=== PATIENT | male | born 1960 | race Caucasian/White ===

== ENCOUNTER 2018-03-06 16:55 | Inpatient (IN) | payer OTHER ==
[2018-03-06] MEDS ORDERED: HEPARIN SODIUM,PORCINE 5,000 UNIT/ML 1 ML VIAL IV PRN (17:22)
[2018-03-06] MEDS ORDERED: SODIUM CHLORIDE 0.9% 1,000 ML IV STA (17:22)
[2018-03-06] MEDS ORDERED: SODIUM CHLORIDE 0.9% 500 ML IV STA (17:22)
[2018-03-06] MEDS ORDERED: HEPARIN SODIUM,PORCINE 5,000 UNIT/ML 1 ML VIAL IV ONE (17:22)
[2018-03-06] MEDS ORDERED: NITROGLYCERIN SL TABS 0.4 MG TAB SUBLINGUAL PRN ×2 (17:22→19:00)
--- NOTE | 2018-03-06 17:25 | ED ---
General Adult HPI - General Chief complaint: Chest Pain Stated complaint: Chest pain Time Seen by Provider: 03/06/18 17:22 Source: patient Mode of arrival: wheelchair Limitations: no limitations - History of Present Illness Initial comments: This is a 49-year-old male the ER for evaluation of chest pain. Patient has history of diabetes smoker. Patient coming in for evaluation regarding severe heaviness left-sided his chest. Patient states significant symptoms are off for a week episodic but significantly worse today with mild shortness of breath. No recent travel history no sick contacts no cough congestion or fever - Related Data Allergies Allergy/AdvReac Type Severity Reaction Status Date / Time No Known Allergies Allergy Verified 03/06/18 17:10 Review of Systems ROS Statement: Those systems with pertinent positive or pertinent negative responses have been documented in the HPI. ROS Other: All systems not noted in ROS Statement are negative. Past Medical History Past Medical History: Diabetes Mellitus History of Any Multi-Drug Resistant Organisms: None Reported Additional Past Surgical History / Comment(s): eye Past Psychological History: No Psychological Hx Reported Smoking Status: Current every day smoker Past Alcohol Use History: None Reported Past Drug Use History: None Reported General Exam Limitations: no limitations General appearance: alert, in no apparent distress, anxious Head exam: Present: atraumatic, normocephalic, normal inspection Eye exam: Present: normal appearance, PERRL, EOMI. Absent: scleral icterus, conjunctival injection, periorbital swelling ENT exam: Present: normal exam, mucous membranes moist Neck exam: Present: normal inspection. Absent: tenderness, meningismus, lymphadenopathy Respiratory exam: Present: normal lung sounds bilaterally. Absent: respiratory distress, wheezes, rales, rhonchi, stridor Cardiovascular Exam: Present: regular rate, normal rhythm, normal heart sounds. Absent: systolic murmur, diastolic murmur, rubs, gallop, clicks GI/Abdominal exam: Present: soft, normal bowel sounds. Absent: distended, tenderness, guarding, rebound, rigid Extremities exam: Present: normal inspection, full ROM, normal capillary refill. Absent: tenderness, pedal edema, joint swelling, calf tenderness Back exam: Present: normal inspection Neurological exam: Present: alert, oriented X3, CN II-XII intact Psychiatric exam: Present: normal affect, normal mood Skin exam: Present: warm, dry, intact, normal color. 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 Patient be admitted for STEMI, Navigation Officer - Lab Data Result diagrams: 03/06/18 17:25 Lab Results 03/06/18 Range/Units 17:25 WBC 11.9 H (3.8-10.6) k/uL RBC 5.30 (4.30-5.90) m/uL Hgb 15.7 (13.0-17.5) gm/dL Hct 46.2 (39.0-53.0) % MCV 87.1 (80.0-100.0) fL MCH 29.6 (25.0-35.0) pg MCHC 34.0 (31.0-37.0) g/dL RDW 13.1 (11.5-15.5) % Plt Count 356 (150-450) k/uL Neutrophils % 65 % Lymphocytes % 27 % Monocytes % 5 % Eosinophils % 1 % Basophils % 0 % Neutrophils # 7.7 (1.3-7.7) k/uL Lymphocytes # 3.3 (1.0-4.8) k/uL Monocytes # 0.5 (0-1.0) k/uL Eosinophils # 0.2 (0-0.7) k/uL Basophils # 0.1 (0-0.2) k/uL - Radiology Data Radiology results: report reviewed (Chest x-rays negative), image reviewed Critical Care Time Critical Care Time: Yes Total Critical Care Time: 31 Disposition Clinical Impression: ST elevation myocardial infarction (STEMI) Disposition: ADMITTED IP TO THIS HOSP Condition: Serious Is patient prescribed a controlled substance at d/c from ED?: No Referrals: Leti Dennis MD [Primary Care Provider] - 1-2 days
[2018-03-06] MEDS ORDERED: LABETALOL 5 MG/ML VIAL MDV IVP STA (17:30)
[2018-03-06] MEDS ORDERED: HEPARIN SOD,PORK IN 0.45% NACL 25,000 UNIT in 0.45% NACL 1 500ML.BAG IV SCH (17:30)
[2018-03-06] MEDS ORDERED: ASPIRIN 81 MG PO STA (17:40)
[2018-03-06] MEDS ORDERED: NITROGLYCERIN OINT 1 INCH/GM PACKET TOPICAL STA ×2 (17:40→17:45)
[2018-03-06] MEDS ORDERED: TICAGRELOR 90 MG TAB PO STA (17:43)
[2018-03-06 17:46] LABS: Basophils # (A) 0.1 k/uL (0-0.2); Basophils % (A) 0 %; Eosinophils # (A) 0.2 k/uL (0-0.7); Eosinophils % (A) 1 %; HCT 46.2 % (39.0-53.0); HGB 15.7 gm/dL (13.0-17.5); Lymphocytes # (A) 3.3 k/uL (1.0-4.8); Lymphocytes % (A) 27 %; MCH 29.6 pg (25.0-35.0); MCV 87.1 fL (80.0-100.0); Mean Platelet Volume 6.6; Monocytes # (A) 0.5 k/uL (0-1.0); Monocytes % (A) 5 %; Neutrophils # (A) 7.7 k/uL (1.3-7.7); Neutrophils % (A) 65 %; Platelet Count 356 k/uL (150-450); RDW 13.1 % (11.5-15.5); WBC 11.9 k/uL (3.8-10.6)
[2018-03-06] MEDS: METOPROLOL TARTRATE 5 MG/5 ML VIAL IVP SCH (17:46)
[2018-03-06] MEDS ORDERED: NITROGLYCERIN-D5W PMX 50 MG in DEXTROSE/WATER 1 250ML.BAG IV ONE (17:48)
[2018-03-06] MEDS ORDERED: fentaNYL (PF) 50 MCG/ML 2 ML AMP ONE (17:57)
[2018-03-06] MEDS ORDERED: LIDOCAINE 1% INJ 10MG/ML (20 ML MDV) ONE ×2 (17:57→18:47)
[2018-03-06] MEDS ORDERED: MIDAZOLAM 2 MG/2 ML VIAL ONE (17:57)
[2018-03-06 17:58] LABS: ALT 23 U/L (21-72); AST 17 U/L (17-59); Albumin 4.4 g/dL (3.5-5.0); Alkaline Phosphatase 87 U/L (38-126); Anion Gap 10 mmol/L; Blood Urea Nitrogen 12 mg/dL (9-20); Calcium 9.4 mg/dL (8.4-10.2); Carbon Dioxide 26 mmol/L (22-30); Chloride 102 mmol/L (98-107); Glucose 150 mg/dL (74-99); Lipase 56 U/L (23-300); Potassium 4.5 mmol/L (3.5-5.1); Sodium 138 mmol/L (137-145); Total Bilirubin 0.3 mg/dL (0.2-1.3); Total Protein 7.6 g/dL (6.3-8.2)
[2018-03-06] MEDS ORDERED: fentaNYL (PF) 50 MCG/ML 2 ML AMP IV ONE (18:08)
[2018-03-06] MEDS ORDERED: MIDAZOLAM 2 MG/2 ML VIAL IVP ONE (18:08)
[2018-03-06] MEDS ORDERED: LIDOCAINE 1% INJ 10MG/ML (20 ML MDV) SQ ONE (18:09)
[2018-03-06] MEDS ORDERED: TICAGRELOR 90 MG TAB ONE (18:10)
[2018-03-06] MEDS ORDERED: TICAGRELOR 90 MG TAB PO ONE (18:13)
[2018-03-06] MEDS ORDERED: IV FLUID CONTINUATION 350 ML IV ONE (18:14)
[2018-03-06] MEDS ORDERED: IV FLUID CONTINUATION 250 ML IV ONE (18:15)
[2018-03-06 18:21] LABS: Partial Thromboplastin Time 25.5 sec (22.0-30.0); Prothrombin Time 9.6 sec (9.0-12.0)
[2018-03-06] MEDS ORDERED: BIVALIRUDIN BOLUS 250 MG/50 ML IV ONE (18:21)
[2018-03-06] MEDS ORDERED: BIVALIRUDIN 250 MG in SODIUM CHLORIDE 0.9% 35 ML IV ONE (18:22)
[2018-03-06 18:31] LABS: Troponin I 0.03 ng/mL (0.000-0.034)
[2018-03-06] MEDS ORDERED: NITROGLYCERIN 1000MCG/10ML SYRINGE INTRACORON ONE (18:44)
[2018-03-06] MEDS ORDERED: IOPAMIDOL-370 125ML BTL INJ ONE (18:45)
[2018-03-06] MEDS ORDERED: MORPHINE SULFATE 4 MG/ML SYRINGE ONE (18:47)
[2018-03-06] MEDS ORDERED: MORPHINE SULFATE 4 MG/ML SYRINGE IVP ONE (18:49)
[2018-03-06] MEDS ORDERED: IOPAMIDOL-370 100ML BTL INJ ONE (18:49)
[2018-03-06] MEDS ORDERED: ATROPINE SULFATE 0.1 MG/ML 10ML SYRINGE IV PRN (19:00)
[2018-03-06] MEDS ORDERED: RX INFO: IV CONTRAST WAS GIVEN 1 EACH MISC MISCELLANE PRN (19:00)
[2018-03-06] MEDS ORDERED: MAG HYDROX/AL HYDROX/SIMETH 30 ML CUP PO PRN (19:00)
--- NOTE | 2018-03-06 19:08 | CC ---
CARDIAC CATHETERIZATION REPORT This patient came with extensive anterolateral myocardial infarction. The patient was taken to the [facility] for primary angioplasty. PROCEDURE: Right groin was prepped and draped in the usual manner and the skin was infiltrated with 2% Xylocaine. The right femoral artery was entered using Seldinger technique. A #6- Surinamese sheath was placed in. Selective coronary angiography was then performed in multiple projections and the left ventricular pressures were obtained. Patient tolerated procedure well. HEMODYNAMIC: Left ventricular end-diastolic pressure was 20 mmHg prior to angiography. No gradient is noted across the aortic valve. SELECTIVE CORONARY ANGIOGRAPHY: Left main coronary artery is normal and patent. LAD is a good caliber blood vessels and the mid LAD has a 99% stenosis with a haziness suggestive of thrombus. Circumflex coronary artery is average caliber blood vessel and gives rise to 2 small size obtuse marginal branch. The first obtuse marginal branch has about 30-40% stenosis. Right coronary artery is a good caliber blood vessel, is dominant in distributions. Distal RCA just before the bifurcation into the PDA and PLV branch has about 70% stenosis. FINAL IMPRESSION: This is a 99% stenosis in the mid LAD. Distal RCA has 70% stenosis. There is mild irregularity in the first obtuse marginal branch. RECOMMENDATIONS: We have proceeded with a stent to the LAD. MMODL / IJN: [id number] /
--- NOTE | 2018-03-06 19:16 | CONS ---
CONSULTATION Mr. Hathaway is a 57-year-old gentleman who is seen in the emergency room with EKG suggestive of acute myocardial infarction. This patient has a history of diabetes and possibly hypertension and he smokes about 1 pack per day. He started having chest pain about a week ago and then on and off he has been having some discomfort. This afternoon he had some discomfort. Denies any significant shortness of breath and came to the emergency room by himself. EKG suggestive of extensive anterior lateral myocardial infarction. There is no previous history of myocardial infarction and denies any prior history of angina since 1 week ago. PAST MEDICAL HISTORY: Includes a history of eye surgery. CURRENT MEDICATIONS: Include lisinopril and the details of the diabetic medicines are not available. REVIEW OF THE SYSTEM: Patient denies any history of a GI bleed or any urinary problem or denies any prior history of stroke. PHYSICAL EXAMINATION: At present reveals a 57-year-old gentleman who at present is comfortable, has not been having any significant chest discomfort. The patient's blood pressure is 180/100 mmHg. Head and ENT examination is negative. Neck is supple. There is no increase in jugular venous pressure. Both the carotid pulses are felt. There is no bruit. Chest is symmetrical. Heart: The PMI is not felt. First and second heart sounds are normal. There is no evidence of any murmur. Lungs are clinically clear to auscultation and percussion. Abdomen is soft. Liver and spleen are not enlarged. Extremities: Peripheral pulsations are 2+. EKG is suggestive of extensive anterior lateral myocardial infarction with ST-segment depression noted in the inferior leads. IMPRESSION: Acute anterior lateral myocardial infarction. Patient has received heparin, aspirin and Brilinta and nitro paste. The patient also received IV labetalol and Lopressor in the emergency room. He will be taken to the cardiac catheterization laboratory for cardiac catheterization and primary angioplasty. The risks and benefits were fully explained to the patient. No family members are available at present. MMODL / IJN: [id number] /
[2018-03-06 19:29] LABS: Glucose,Whole Blood 153 mg/dL (75-99)
--- NOTE | 2018-03-06 19:44 | PTCA ---
PERCUTANEOUSTRANS CORORONARY ANGIOGRAPHY DATE OF SERVICE: 03/06/2018 PROCEDURE: Percutaneous transluminal coronary angioplasty and stenting of a subtotally occluded mid left anterior descending coronary artery performed in the setting of an acute ST- elevation myocardial infarction. PERFORMED BY: Dr. Brigida Armijo. Moderate conscious sedation time was 26 minutes. CLINICAL INFORMATION: Mr. Stefano Hathaway is a 57-year-old gentleman with history of diabetes, smoking, hypertension, who came into the hospital with chest pain, driving himself. EKG revealed an anterior ST elevation. A STEMI alert was called and Dr. Zayra Keene evaluated the patient and performed cardiac catheterization. He noted that the LAD had a 90% stenosis and I proceeded to perform PCI in the same setting. PROCEDURE NOTE: The existing 6-Mongolian introducer in the right femoral artery was used to perform the procedure. I used a standard left Harish guide catheter to cannulate the left coronary artery. I initially attempted a BMW wire but switched over to a Whisper wire. With this I was able to cross the heavily calcified lesion. I gave 2 inflations with a 2.5, 12 mm NC Trek balloon, with modest improvement. This was a heavily calcified vessel. I then deployed a 12 mm long, 3.25 caliber Xience stent at 13 atmospheres. Patient had chest pain and pre-cordial ST elevation. Excellent angiographic result was achieved without complication. The patient received Angiomax bolus and infusion. He also received 180 mg of Brilinta. Excellent result without complication was achieved. The sheath was taken out and Perclose device used to secure hemostasis and he was sent to the room in a stable condition. Excellent angiographic result was achieved and the patient's daughter was informed about the details by Dr. Nael Keene. MMODL / IJN: [id number] /
[2018-03-06] MEDS: SODIUM CHLORIDE 0.9% 1,000 ML IV SCH (20:17)
[2018-03-06] MEDS: ATORVASTATIN 80 MG TAB PO SCH (20:59)
[2018-03-06] MEDS ORDERED: ZOLPIDEM 5 MG TAB PO PRN (21:00)
--- NOTE | 2018-03-06 21:42 | XR ---
EXAMINATION TYPE: XR chest 1V DATE OF EXAM: 03/06/2018 COMPARISON: EXAMINATION TYPE: XR chest 1V DATE OF EXAM: 03/06/2018 COMPARISON: NONE HISTORY: Chest pain TECHNIQUE: Single view FINDINGS: Heart and mediastinum are normal. Lungs are clear. Diaphragm is normal. Bony thorax is inta ct. IMPRESSION: Normal chest
[2018-03-06 22:58] VITALS: BMI 25.4
[2018-03-06 23:57] LABS: Glucose,Whole Blood 162 mg/dL (75-99)
[2018-03-07 00:30] LABS: Creatine Kinase MB 0.8 ng/mL (0.0-2.4)
[2018-03-07 00:36] LABS: Troponin I 0.068 ng/mL (0.000-0.034)
[2018-03-07] MEDS: METOPROLOL TARTRATE 5 MG/5 ML VIAL IVP SCH ×3 (02:06→02:09)
[2018-03-07 05:03] LABS: Basophils % (A) 0 %; Eosinophils # (A) 0.1 k/uL (0-0.7); Eosinophils % (A) 1 %; HCT 38.4 % (39.0-53.0); Lymphocytes # (A) 2.5 k/uL (1.0-4.8); Lymphocytes % (A) 21 %; MCH 28.8 pg (25.0-35.0); MCHC 32.9 g/dL (31.0-37.0); MCV 87.4 fL (80.0-100.0); Mean Platelet Volume 6.9; Monocytes # (A) 0.6 k/uL (0-1.0); Monocytes % (A) 5 %; Neutrophils # (A) 8.7 k/uL (1.3-7.7); Neutrophils % (A) 72 %; Platelet Count 280 k/uL (150-450); RDW 13.1 % (11.5-15.5); WBC 12.1 k/uL (3.8-10.6)
[2018-03-07 05:04] LABS: HGB 12.6 gm/dL (13.0-17.5)
[2018-03-07 05:20] LABS: Anion Gap 6 mmol/L; Blood Urea Nitrogen 13 mg/dL (9-20); Calcium 8.5 mg/dL (8.4-10.2); Carbon Dioxide 23 mmol/L (22-30); Chloride 105 mmol/L (98-107); Cholesterol 223 mg/dL (<200); Glucose 223 mg/dL (74-99); HDL Cholesterol 31 mg/dL (40-60); Sodium 134 mmol/L (137-145)
[2018-03-07 05:29] LABS: Creatine Kinase MB 1.1 ng/mL (0.0-2.4)
[2018-03-07 05:30] LABS: Triglycerides 551 mg/dL (<150)
[2018-03-07 05:32] LABS: Troponin I 0.125 ng/mL (0.000-0.034)
[2018-03-07] MEDS: ACETAMINOPHEN TAB 500 MG TAB PO PRN (06:28)
[2018-03-07 07:22] LABS: Glucose,Whole Blood 239 mg/dL (75-99)
[2018-03-07] MEDS: INSULIN ASPART 100 UNIT/ML 1 ML 10 ML VIAL SQ SCH ×4 (07:45→20:28)
[2018-03-07] MEDS: LOSARTAN 50 MG TAB PO SCH (08:31)
[2018-03-07] MEDS: ASPIRIN 81 MG PO SCH (08:31)
[2018-03-07] MEDS: TICAGRELOR 90 MG TAB PO SCH ×2 (08:32→20:23)
[2018-03-07] MEDS: SODIUM CHLORIDE 0.9% 1,000 ML IV SCH (08:32)
[2018-03-07] MEDS ORDERED: ASPIRIN 325 MG TAB PO SCH (09:00)
[2018-03-07 11:46] LABS: Glucose,Whole Blood 203 mg/dL (75-99)
--- NOTE | 2018-03-07 13:12 | P.HPIM ---
History of Present Illness 57-year-old pleasant gentleman came in with the complaints of chest pain with diaphoresis and shortness of breath found to have acute ST elevation microinfarction in the anterolateral leads patient subsequently underwent cardiac catheterization and stenting of LAD there is still stenosis of 70% in RCA. Patient did get an echocardiogram today chest pain-free today patient denied fever chills nausea vomiting. Patient does smoke extensive counseling regarding this was provided. Review of Systems REVIEW OF SYSTEMS: CONSTITUTIONAL: No fever, no malaise, no fatigue. HEENT: No recent visual problems or hearing problems. Denied any sore throat. CARDIOVASCULAR: No chest pain, orthopnea, PND, no palpitations, no syncope. PULMONARY: No shortness of breath, no cough, no hemoptysis. GASTROINTESTINAL: No diarrhea, no nausea, no vomiting, no abdominal pain. Normoactive bowel sounds. NEUROLOGICAL: No headaches, no weakness, no numbness. HEMATOLOGICAL: Denies any bleeding or petechiae. GENITOURINARY: Denies any burning micturition, frequency, or urgency. MUSCULOSKELETAL/RHEUMATOLOGICAL: Denies any joint pain, swelling, or any muscle pain. ENDOCRINE: Denies any polyuria or polydipsia. The rest of the 14-point review of systems is negative. Past Medical History Past Medical History: Diabetes Mellitus History of Any Multi-Drug Resistant Organisms: None Reported Additional Past Surgical History / Comment(s): eye Past Psychological History: No Psychological Hx Reported Smoking Status: Current every day smoker Past Alcohol Use History: None Reported Past Drug Use History: None Reported Medications and Allergies Home Medications Medication Instructions Recorded Confirmed Type Glimepiride [Amaryl] 1 mg PO BID 03/06/18 03/06/18 History Lisinopril [Zestril] 5 mg PO DAILY 03/06/18 03/06/18 History Allergies Allergy/AdvReac Type Severity Reaction Status Date / Time No Known Allergies Allergy Verified 03/06/18 17:52 Physical Exam Vitals: Vital Signs Temp Pulse Pulse Resp BP Pulse Ox 03/07/18 11:00 77 22 158/89 98 03/07/18 10:00 90 18 153/82 96 03/07/18 09:00 76 16 153/82 96 03/07/18 08:00 97.9 F 78 21 135/76 97 03/07/18 07:30 78 16 130/69 97 08/04/18 07:00 77 20 178/112 98 //18 06:30 91 24 147/85 97 03/07/18 06:00 86 17 148/81 95 18 05:30 82 21 132/81 97 18 05:00 73 20 139/78 97 03/07/18 04:30 73 18 127/72 93 L 18 04:00 98.2 F 73 21 112/67 93 L 03/07/18 03:30 74 16 125/73 95 03/07/18 03:00 74 18 130/77 94 L 03/07/18 02:00 75 16 123/71 98 03/07/18 01:30 68 12 127/74 98 03/07/18 01:00 77 18 90/59 95 03/07/18 00:30 66 12 101/61 97 03/07/18 00:00 98.2 F 73 16 103/63 98 18 23:44 70 18 119/72 96 18 23:30 78 19 119/72 97 18 23:00 84 21 116/77 97 03/06/18 22:30 76 15 124/76 97 03/06/18 22:15 79 16 96 18 22:00 78 12 152/95 96 03/06/18 21:30 75 23 98 18 21:00 73 15 134/82 97 18 20:45 76 16 03/06/18 20:30 69 70 18 98 18 20:22 97 18 20:15 72 20 18 20:00 75 16 130/80 99 0318 19:45 74 18 /18 19:30 98.5 F 76 18 124/71 98 03/18 17:55 84 18 151/100 96 03/18 17:50 82 20 162/98 96 18 17:45 86 18 170/102 98 03/18 17:40 88 18 191/105 97 0318 17:35 84 18 178/102 96 03/06/18 17:30 92 20 169/99 98 0318 17:25 120 H 20 171/102 99 03/18 17:20 132 H 20 183/110 99 03/06/18 17:15 108 H 20 176/100 96 03/06/18 17:07 98.7 F 99 18 144/92 96 Intake and Output 03/06/18 03/07/18 03/07/18 22:59 06:59 14:59 Intake Total 422.983 5121 615 Output Total 700 300 350 Balance -350.525 5358 265 Intake: IV 498 600 375 Sodium Chloride 0.9% 1, 225 600 375 000 ml @ 75 mls/hr IV . [id number] [facility] Rx#:[id number] Intake, IV Titration 0.375 Amount Nitroglycerin-D5w Pmx 50 0.375 mg In Dextrose/Water 1 250ml.bag @ 15 MCG/MIN 4. 5 mls/hr IV .Q24H ONE Rx# :[id number] Oral 937 240 Output: Urine 700 300 350 Other: Voiding Method Urinal Toilet Toilet # Voids 0 1 # Bowel Movements 1 Weight 65.2 kg 65.2 kg 65.2 kg PHYSICAL EXAMINATION: GENERAL: The patient is alert and oriented x3, not in any acute distress. Well developed, well nourished. HEENT: Pupils are round and equally reacting to light. EOMI. No scleral icterus. No conjunctival pallor. Normocephalic, atraumatic. No pharyngeal erythema. No thyromegaly. CARDIOVASCULAR: S1 and S2 present. No murmurs, rubs, or gallops. PULMONARY: Chest is clear to auscultation, no wheezing or crackles. ABDOMEN: Soft, nontender, nondistended, normoactive bowel sounds. No palpable organomegaly. MUSCULOSKELETAL: No joint swelling or deformity. EXTREMITIES: No cyanosis, clubbing, or pedal edema. NEUROLOGICAL: Gross neurological examination did not reveal any focal deficits. SKIN: No rashes. Results CBC & Chem 7: 03/07/18 04:44 03/07/18 04:44 Labs: Abnormal Lab Results - Last 24 Hours (Table) 03/06/18 03/06/18 03/06/18 Range/Units 17:25 17:25 19:26 WBC 11.9 H (3.8-10.6) k/uL Hgb (13.0-17.5) gm/dL Hct (39.0-53.0) % Neutrophils # (1.3-7.7) k/uL Sodium (137-145) mmol/L Glucose 150 H (74-99) mg/dL POC Glucose (mg/dL) 153 H (75-99) mg/dL Troponin I (0.000-0.034) ng/mL Triglycerides (<150) mg/dL Cholesterol (<200) mg/dL HDL Cholesterol (40-60) mg/dL 03/06/18 03/06/18 03/07/18 Range/Units 23:30 23:56 04:44 WBC (3.8-10.6) k/uL Hgb (13.0-17.5) gm/dL Hct (39.0-53.0) % Neutrophils # (1.3-7.7) k/uL Sodium (137-145) mmol/L Glucose (74-99) mg/dL POC Glucose (mg/dL) 162 H (75-99) mg/dL Troponin I 0.068 H* 0.125 H* (0.000-0.034) ng/mL Triglycerides (<150) mg/dL Cholesterol (<200) mg/dL HDL Cholesterol (40-60) mg/dL 03/07/18 03/07/18 03/07/18 Range/Units 04:44 04:44 07:20 WBC 12.1 H (3.8-10.6) k/uL Hgb 12.6 L D (13.0-17.5) gm/dL Hct 38.4 L (39.0-53.0) % Neutrophils # 8.7 H (1.3-7.7) k/uL Sodium 134 L (137-145) mmol/L Glucose 223 H (74-99) mg/dL POC Glucose (mg/dL) 239 H (75-99) mg/dL Troponin I (0.000-0.034) ng/mL Triglycerides 551 H (<150) mg/dL Cholesterol 223 H (<200) mg/dL HDL Cholesterol 31 L (40-60) mg/dL 03/07/18 Range/Units 11:45 WBC (3.8-10.6) k/uL Hgb (13.0-17.5) gm/dL Hct (39.0-53.0) % Neutrophils # (1.3-7.7) k/uL Sodium (137-145) mmol/L Glucose (74-99) mg/dL POC Glucose (mg/dL) 203 H (75-99) mg/dL Troponin I (0.000-0.034) ng/mL Triglycerides (<150) mg/dL Cholesterol (<200) mg/dL HDL Cholesterol (40-60) mg/dL Thrombosis Risk Factor Assmnt - Choose All That Apply Any of the Below Risk Factors Present?: Yes Each Factor Represents 1 point: Acute AK, Age 41-60 years Other Risk Factors: Yes Each Risk Factor Represents 2 Points: Central venous access Other congenital or acquired thrombophilia - If yes, enter type in comment: No Thrombosis Risk Factor Assessment Total Risk Factor Score: 4 Thrombosis Risk Factor Assessment Level: Moderate Risk Assessment and Plan Plan: -ST elevation myocardial infarction: Status post cardiac catheterization and stenting of LAD, patient is on dual antiplatelet therapy, losartan, statin and a beta frankie. -Hyponatremia hypovolemic hyponatremia patient is receiving IV normal saline -Leukocytosis secondary to myocardial infarction -Hyperlipidemia patient is on high-dose statin now. -Type 2 diabetes mellitus: Patient will be started on sliding scale insulin for now. -Nicotine abuse: Counseling was provided
[2018-03-07 14:04] LABS: Hemoglobin A1C 8.3 % (4.0-6.0)
--- NOTE | 2018-03-07 14:43 | ECHOF ---
Referral Reason:Ant STEMI PCI of LAD MEASUREMENTS -------- HEIGHT: 160.0 cm WEIGHT: 64.9 kg BP: 148/81 IVSd: 1.1 cm (0.6 - 1.1) LVIDd: 4.4 cm (3.9 - 5.3) LVPWd: 1.0 cm (0.6 - 1.1) EDV(Teich): 89 ml IVSs: 1.3 cm LVIDs: 3.1 cm LVPWs: 1.5 cm %IVS Thck: 23 % ESV(Teich): 38 ml EF(Teich): 58 % %FS: 30 % SV(Teich): 51 ml LA Diam: 3.4 cm (2.7 - 3.8) RVIDd: 2.9 cm (< 3.3) IVC: 20.03 mm LALs A4C: 4.7 cm LAAs A4C: 14.4 cm LAESV A-L A4C: 38 ml LAESV MOD A4C: 33 ml LALs A2C: 5.0 cm LAAs A2C: 13.3 cm LAESV A-L A2C: 30 ml LAESV MOD A2C: 28 ml LAESV(A-L): 35 ml LAESV Index (A-L): 20.70 ml/m Ao Diam: 3.1 cm (2.0 - 3.7) AV Cusp: 2.2 cm (1.5 - 2.6) EPSS: 0.8 cm MV E Lokesh: 0.87 m/s MV DecT: 220 ms MV Dec Davison: 4.0 m/s MV A Lokesh: 0.99 m/s MV E/A Ratio: 0.89 MV PHT: 64 ms AV Vmax: 1.46 m/s AV maxP.49 mmHg TR Vmax: 2.62 m/s TR maxP.48 mmHg RAP: 5.00 mmHg RVSP: 32.48 mmHg MV EF SLOPE: 110.41 mm/s (70 - 150) MV EXCURSION: 18.52 mm (> 18.000) FINDINGS -------- Sinus rhythm. This was a technically good study. The left ventricular size is normal. There is borderline concentric left ventricular hypertrophy. Overall left ventricular systolic function is normal with, an EF between 55 - 60 %. The right ventricle is normal in size. Normal LA size by volume 22+/-6 ml/m2. The right atrium is normal in size. The aortic valve is trileaflet and appears structurally normal. Mild mitral annular calcification present. There is trace mitral regurgitation. Mild tricuspid regurgitation present. Right ventricular systolic pressure is normal at < 35 mmHg. Trace/mild (physiologic) pulmonic regurgitation. The aortic root size is normal. Normal inferior vena cava with normal inspiratory collapse consistent with estimated right atrial pre ssure of 5 mmHg. There is no pericardial effusion. CONCLUSIONS -------- 1. Sinus rhythm. 2. This was a technically good study. 3. The left ventricular size is normal. 4. There is borderline concentric left ventricular hypertrophy. 5. Overall left ventricular systolic function is normal with, an EF between 55 - 60 %. 6. The right ventricle is normal in size. 7. Normal LA size by volume 22+/-6 ml/m2. 8. The right atrium is normal in size. 9. The aortic valve is trileaflet and appears structurally normal. 10. Mild mitral annular calcification present. 11. There is trace mitral regurgitation. 12. Mild tricuspid regurgitation present. 13. Right ventricular systolic pressure is normal at < 35 mmHg. 14. Trace/mild (physiologic) pulmonic regurgitation. 15. The aortic root size is normal. 16. Normal inferior vena cava with normal inspiratory collapse consistent with estimated right atrial pressure of 5 mmHg. 17. There is no pericardial effusion. GRADUATE STUDENT INSTRUCTOR: Patsy Goldberg RDCS
[2018-03-07 17:13] LABS: Glucose,Whole Blood 157 mg/dL (75-99)
[2018-03-07 20:22] LABS: Glucose,Whole Blood 216 mg/dL (75-99)
[2018-03-07] MEDS: ATORVASTATIN 80 MG TAB PO SCH (20:23)
--- NOTE | 2018-03-07 20:36 | PN ---
PROGRESS NOTE This patient presented with acute extensive anterior lateral wall myocardial infarction. The patient was taken to the prosthetic lab technician yesterday. The cardiac catheterization revealed 99% stenosis of the LAD. There was FRANCIS-3 flow and patient underwent stenting. He is feeling well. Denies any chest pain. Denies any shortness of breath. The patient has remained hemodynamically stable. The patient's blood pressure is 150/90 mmHg. Respirations are not labored. First and second heart sounds are normal. Lungs are clinically clear to auscultation and percussion. The patient's hemoglobin is 12.6, electrolytes are normal. Creatinine is 0.7. The maximum troponin this morning was noted at 0.0125. The patient triglycerides were 551 and the cholesterol is 223. HDL is 31. The patient's lipase was 56. EKG shows resolution of ST-segment changes and R waves are present. FINAL IMPRESSION: This patient presented with acute anterior lateral myocardial infarction. The patient is hemodynamically stable. Maximum troponin was only 0.1 suggestive of small myocardial infarction secondary to early reperfusion. We will continue the patient on the current medications. MMODL / IJN: [id number] /
[2018-03-08 04:59] LABS: HCT 42.4 % (39.0-53.0); HGB 14.2 gm/dL (13.0-17.5); MCH 29.4 pg (25.0-35.0); MCHC 33.6 g/dL (31.0-37.0); MCV 87.6 fL (80.0-100.0); Mean Platelet Volume 6.4; Platelet Count 280 k/uL (150-450); RBC 4.84 m/uL (4.30-5.90); RDW 13.1 % (11.5-15.5); WBC 12.1 k/uL (3.8-10.6)
[2018-03-08 05:22] LABS: Anion Gap 8 mmol/L; Blood Urea Nitrogen 10 mg/dL (9-20); Calcium 9.2 mg/dL (8.4-10.2); Carbon Dioxide 23 mmol/L (22-30); Chloride 107 mmol/L (98-107); Glucose 130 mg/dL (74-99); Potassium 4.3 mmol/L (3.5-5.1); Sodium 138 mmol/L (137-145)
[2018-03-08 07:24] LABS: Glucose,Whole Blood 135 mg/dL (75-99)
[2018-03-08] MEDS: TICAGRELOR 90 MG TAB PO SCH ×2 (07:59→23:13)
[2018-03-08] MEDS: ASPIRIN 81 MG PO SCH (07:59)
[2018-03-08] MEDS: LOSARTAN 50 MG TAB PO SCH (07:59)
[2018-03-08] MEDS: ACETAMINOPHEN TAB 500 MG TAB PO PRN (08:00)
[2018-03-08] MEDS: INSULIN ASPART 100 UNIT/ML 1 ML 10 ML VIAL SQ SCH ×4 (08:00→23:14)
[2018-03-08 11:52] LABS: Glucose,Whole Blood 160 mg/dL (75-99)
--- NOTE | 2018-03-08 12:24 | P.PN ---
Subjective Patient was admitted with ST elevation microinfarction stenting of LAD patient is clinically doing well chest pain-free echocardiogram showed normal ejection fraction. Constitutional: Denied any fatigue denied any fever. Cardio vascular: denied any chest pain, palpitations Gastrointestinal denied any nausea vomiting Pulmonary: Denied any shortness of breath cough Neurologic denied any new focal deficits Objective - Vital Signs Vital signs: Vital Signs Temp 98.1 F 03/08/18 08:00 Pulse 96 03/08/18 08:00 Resp 25 H 03/08/18 08:00 BP 136/79 03/08/18 08:00 Pulse Ox 97 03/08/18 08:00 Intake & Output 03/07/18 03/08/18 03/08/18 18:59 06:59 18:59 Intake Total 615 240 240 Output Total 350 450 650 Balance 265 -210 -410 Weight 65.2 kg 66.5 kg Intake: IV 375 Sodium Chloride 0.9% 1, 375 000 ml @ 75 mls/hr IV . [id number] [facility] Rx#:[id number] Oral 240 240 240 Output: Urine 350 450 650 Other: Voiding Method Toilet Toilet Toilet # Voids 1 # Bowel Movements 1 - Exam PHYSICAL EXAMINATION: GENERAL: The patient is alert and oriented x3, not in any acute distress. Well developed, well nourished. HEENT: Pupils are round and equally reacting to light. EOMI. No scleral icterus. No conjunctival pallor. Normocephalic, atraumatic. No pharyngeal erythema. No thyromegaly. CARDIOVASCULAR: S1 and S2 present. No murmurs, rubs, or gallops. PULMONARY: Chest is clear to auscultation, no wheezing or crackles. ABDOMEN: Soft, nontender, nondistended, normoactive bowel sounds. No palpable organomegaly. MUSCULOSKELETAL: No joint swelling or deformity. EXTREMITIES: No cyanosis, clubbing, or pedal edema. NEUROLOGICAL: Gross neurological examination did not reveal any focal deficits. SKIN: No rashes. - Labs CBC & Chem 7: 03/08/18 04:34 03/08/18 04:34 Labs: Abnormal Lab Results - Last 24 Hours (Table) 03/07/18 03/07/18 03/07/18 Range/Units 04:44 17:11 20:21 WBC (3.8-10.6) k/uL Glucose (74-99) mg/dL POC Glucose (mg/dL) 157 H 216 H (75-99) mg/dL Hemoglobin A1c 8.3 H (4.0-6.0) % 03/08/18 03/08/18 03/08/18 Range/Units 04:34 04:34 07:22 WBC 12.1 H (3.8-10.6) k/uL Glucose 130 H (74-99) mg/dL POC Glucose (mg/dL) 135 H (75-99) mg/dL Hemoglobin A1c (4.0-6.0) % 03/08/18 Range/Units 11:50 WBC (3.8-10.6) k/uL Glucose (74-99) mg/dL POC Glucose (mg/dL) 160 H (75-99) mg/dL Hemoglobin A1c (4.0-6.0) % Assessment and Plan Plan: -ST elevation myocardial infarction: Status post cardiac catheterization and stenting of LAD, patient is on dual antiplatelet therapy, losartan, statin and a beta frankie. Normal ejection fraction on the echocardiogram -Hyponatremia hypovolemic hyponatremia patient is receiving IV normal saline -Leukocytosis secondary to myocardial infarction -Hyperlipidemia patient is on high-dose statin now. -Type 2 diabetes mellitus: Patient will be started on sliding scale insulin for now. -Nicotine abuse: Counseling was provided
[2018-03-08 13:05] VITALS: RESP 16
[2018-03-08 17:30] LABS: Glucose,Whole Blood 211 mg/dL (75-99)
[2018-03-08 21:05] LABS: Glucose,Whole Blood 160 mg/dL (75-99)
[2018-03-08] MEDS: ATORVASTATIN 80 MG TAB PO SCH (23:13)
[2018-03-09 06:16] LABS: Mean Platelet Volume 6.5; Platelet Count 288 k/uL (150-450)
[2018-03-09 06:17] LABS: Glucose,Whole Blood 186 mg/dL (75-99)
[2018-03-09] MEDS: INSULIN ASPART 100 UNIT/ML 1 ML 10 ML VIAL SQ SCH ×2 (06:58→12:11)
[2018-03-09] MEDS: ASPIRIN 81 MG PO SCH (08:30)
[2018-03-09] MEDS: TICAGRELOR 90 MG TAB PO SCH (08:30)
[2018-03-09] MEDS: LOSARTAN 50 MG TAB PO SCH (08:30)
--- NOTE | 2018-03-09 08:55 | PN ---
PROGRESS NOTE This patient presented with extensive anterior wall myocardial infarction. Patient is doing fairly well. He remains hemodynamically stable. No arrhythmias are noted. Blood pressure is 136/79 mmHg. Heart: First and second heart sounds. No murmur was noted. Lungs are clinically clear to auscultation and percussion. Patient's vital signs remains stable. Patient to be transferred to the selective care unit and ambulated. If patient's condition remains stable, patient will be discharged home in the next 24-48 hours. MMODL / IJN: [id number] /
[2018-03-09] MEDS ORDERED: METOPROLOL TARTRATE 25 MG TAB PO SCH (09:45)
[2018-03-09 11:27] LABS: Glucose,Whole Blood 180 mg/dL (75-99)
[2018-03-09 11:47] VITALS: BP 138/95; PULSE 76; TEMP 97.4
--- NOTE | 2018-03-09 13:05 | P.PN ---
Subjective Progress Note Date: 03/09/18 This is a pleasant 57-year-old gentleman who presented to the hospital with an acute anterior wall myocardial infarction ST elevation AL, he underwent angioplasty and stenting of the LAD. Patient was seen and examined this and, denies any chest pain or difficulty in breathing. He's been up ambulating without any difficulty. Echocardiogram with Doppler study was performed which revealed an ejection fraction of 55-60%. The pressure this morning 138/90 with a heart rate in the 70s to 80s, temperature 97.4, 98% room air. Patient may be able to be discharged home today from cardiology's perspective, we'll make him a follow-up appointment to see in the office in one week Objective - Vital Signs Vital signs: Vital Signs Temp 97.4 F L 03/09/18 11:43 Pulse 76 03/09/18 11:43 Resp 16 03/09/18 11:43 BP 138/95 03/09/18 11:43 Pulse Ox 98 03/09/18 11:43 Intake & Output 03/08/18 03/09/18 03/09/18 18:59 06:59 18:59 Intake Total 720 600 Output Total 650 350 Balance 70 -350 600 Weight 63.4 kg Intake: Oral 720 600 Output: Urine 650 350 Other: Voiding Method Toilet Toilet # Voids 1 1 - Exam PHYSICAL EXAMINATION: GENERAL: This is a 57-year-old gentleman in no acute distress at the time of my examination HEENT: Head is atraumatic, normocephalic. Pupils equal, round. Sclera anicteric. Conjunctiva are clear. Mucous membranes of the mouth are moist. Neck is supple. There is no elevated jugular venous pressure.] bruit is heard. HEART EXAMINATION: Heart S1, S2 normal. No murmur or gallop heard. CHEST EXAMINATION: Lungs are clear to auscultation and precussion. No chest wall tenderness is noted on palpation or with deep breathing. ABDOMEN: Soft, nontender. Bowel sounds are heard. No organomegaly noted. EXTREMITIES: 2+ peripheral pulses with no evidence of peripheral edema and no calf tenderness noted. NEUROLOGIC patient is awake, alert and oriented ?-3. . - Labs CBC & Chem 7: 03/09/18 05:51 03/08/18 04:34 Labs: Abnormal Lab Results - Last 24 Hours (Table) 03/08/18 03/08/18 03/09/18 Range/Units 17:11 21:03 06:15 POC Glucose (mg/dL) 211 H 160 H 186 H (75-99) mg/dL 03/09/18 Range/Units 11:25 POC Glucose (mg/dL) 180 H (75-99) mg/dL Assessment and Plan Plan: Assessment and plan #1 acute anterior wall AL status post angioplasty and stenting of the LAD #2 hypertension #3 hyperlipidemia #4 nicotine dependence Plan Patient may be able to be discharged home today from cardiology's perspective. Follow-up appointment will be made with Dr. VC Keene in the office post discharge. Patient has been educated regarding his medication, diet, importance of nicotine cessation. DNP note has been reviewed, I agree with a documented findings and plan of care. Patient was seen and examined.
--- NOTE | 2018-03-10 06:31 | P.DS ---
Providers Date of admission: 03/06/18 17:24 Attending physician: Daniel Fang Consults: 03/06/18 17:22 Consult Physician Urgent Consulting Provider: Matty Fajardo Consult Reason/Comments: stemi Do you want consulting provider notified?: Yes 03/06/18 19:00 Consult Physician Routine Consulting Provider: [facility] Consult Reason/Comments: Post Interventional patient Do you want consulting provider notified?: Already Contacted Primary care physician: Jeannie Allred [facility] Course: 57-year-old pleasant gentleman came in with the complaints of chest pain with diaphoresis and shortness of breath found to have acute ST elevation myocardial infarction in the anterolateral leads patient subsequently underwent cardiac catheterization and stenting of LAD and with stenosis of 70% in RCA. Patient did get an echocardiogram:EF 55-60%. on the day of discharge , pt is chest pain- free, no dyspnea, denied fever chills nausea vomiting. Patient does smoke extensively about 1-1.5 PPD, counseling regarding this was provided and he agrees to quit, prescription for nicotine patch is provided , pt has Hb A1c is 8.3% , he was referred to endocrinology upon discharge, pt is instructed to f/u with endo clinic and he agrees. also he agrees with appointment made for pcp and cardiology and their timing. pt was cleared by cardiology for discharged, problem list and management plan was discussed with pt and he verbalized understanding and acceptance. pt is found stable and can be discharge home however he needs f/u as outpt discharge exam: GENERAL: The patient is alert and oriented x3, not in any acute distress. Well developed, well nourished. HEENT: Pupils are round and equally reacting to light. EOMI. No scleral icterus. No conjunctival pallor. Normocephalic, atraumatic. No pharyngeal erythema. No thyromegaly. CARDIOVASCULAR: S1 and S2 present. No murmurs, rubs, or gallops. PULMONARY: Chest is clear to auscultation, no wheezing or crackles. ABDOMEN: Soft, nontender, nondistended, normoactive bowel sounds. No palpable organomegaly. MUSCULOSKELETAL: No joint swelling or deformity. EXTREMITIES: No cyanosis, clubbing, or pedal edema. NEUROLOGICAL: Gross neurological examination did not reveal any focal deficits. SKIN: No rashes. time spent more than 35 min Patient Condition at Discharge: Good Plan - Discharge Summary Discharge Rx Participant: Yes New Discharge Prescriptions: New Aspirin 81 mg PO DAILY #30 chew Atorvastatin [Lipitor] 80 mg PO HS #30 tab Losartan [Cozaar] 50 mg PO DAILY #30 tab Metoprolol Tartrate [Lopressor] 25 mg PO BID #60 tab Nitroglycerin Sl Tabs [Nitrostat] 0.4 mg SUBLINGUAL Q5M PRN #25 tab PRN Reason: Chest Pain Ticagrelor [Brilinta] 90 mg PO BID #60 tab Nicotine 21Mg/24Hr Patch [Habitrol] 1 each TRANSDERM DAILY #30 patch Continue Glimepiride [Amaryl] 1 mg PO BID Discontinued Lisinopril [Zestril] 5 mg PO DAILY Discharge Medication List Glimepiride [Amaryl] 1 mg PO BID 03/06/18 [History] Aspirin 81 mg PO DAILY #30 chew 03/09/18 [Rx] Atorvastatin [Lipitor] 80 mg PO HS #30 tab 03/09/18 [Rx] Losartan [Cozaar] 50 mg PO DAILY #30 tab 03/09/18 [Rx] Metoprolol Tartrate [Lopressor] 25 mg PO BID #60 tab 03/09/18 [Rx] Nicotine 21Mg/24Hr Patch [Habitrol] 1 each TRANSDERM DAILY #30 patch 03/09/18 [ Rx] Nitroglycerin Sl Tabs [Nitrostat] 0.4 mg SUBLINGUAL Q5M PRN #25 tab 03/09/18 [Rx ] Ticagrelor [Brilinta] 90 mg PO BID #60 tab 03/09/18 [Rx] Follow up Appointment(s)/Referral(s): Leti Dennis MD [Primary Care Provider] - 03/19/18 1:10 pm () Jose Mercado MD [REFERRING] - 1 Week (Please call to schedule appointment for your DM ) Felicia Keene MD [STAFF PHYSICIAN] - 03/16/18 3:00 pm (Friday) Patient Instructions/Handouts: *Surgery [facility] - After Heart Catheterization - [employer] Instructions, Left Heart Catheterization (DC) Activity/Diet/Wound Care/Special Instructions: Follow up with senior reliability engineer regarding prior authorization for medication, Brilinta supply tech free 30 day supply of Brilinta from [facility] at time of discharge Diet: Cardiac diet Activity: is limited till you see your doctor Discharge Disposition: HOME SELF-CARE
== END 2018-03-09 16:44 | disposition home or self-care (01) | DRG 247 ==
LOC: EC 16:55 → 6ICU 17:24 → 6SEL 03-08 12:09
PROVIDERS: ADMIT Hospitalist; ATTEND Hospitalist
PROC: 4A023N7 Measurement of Cardiac Sampling and Pressure, Left Heart, Percutaneous Approach (ICD-10-PCS; principal; 2018-03-06 17:57)
PROC: B2111ZZ Fluoroscopy of Multiple Coronary Arteries using Low Osmolar Contrast (ICD-10-PCS; principal; 2018-03-06 17:57)
PROC: 027034Z Dilation of Coronary Artery, One Artery with Drug-eluting Intraluminal Device, Percutaneous Approach (ICD-10-PCS; 2018-03-06 17:57)
DX: I21.09 ST elevation (STEMI) myocardial infarction involving other coronary artery of anterior wall (principal); E87.1 Hypo-osmolality and hyponatremia; D72.829 Elevated white blood cell count, unspecified; E11.9 Type 2 diabetes mellitus without complications; E78.5 Hyperlipidemia, unspecified; F17.200 Nicotine dependence, unspecified, uncomplicated; I10 Essential (primary) hypertension; I25.10 Atherosclerotic heart disease of native coronary artery without angina pectoris; Z79.84 Long term (current) use of oral hypoglycemic drugs; Z79.899 Other long term (current) drug therapy; Z71.6 Tobacco abuse counseling; I25.84 Coronary atherosclerosis due to calcified coronary lesion
CPT/HCPCS: 36415; 71045; 80048; 80053; 80061; 82550; 82553; 83036; 83690; 83735; 84484; 85025; 85027; 85049; 85610; 85730; 93005; 93306; 93458; 96374; 96375; 96376; 99291

== ENCOUNTER 2018-08-30 00:03 | Emergency (ER) | payer OTHER ==
[2018-08-30] MEDS ORDERED: INSULIN REGULAR 100 UNIT/ML VIAL SQ STA (00:18)
[2018-08-30] MEDS ORDERED: SODIUM CHLORIDE 0.9% 2,000 ML IV ONE (00:18)
--- NOTE | 2018-08-30 01:26 | ED ---
Chest Pain HPI - General Chief Complaint: Chest Pain Stated Complaint: Chest pain Time Seen by Provider: 08/30/18 00:17 Source: patient, EMS Mode of arrival: EMS Limitations: no limitations - History of Present Illness MD Complaint: chest pain Onset/Timin -: days(s) Onset: during rest Pain Location: left chest Pain Radiation: none Severity: moderate Quality: aching Consistency: constant Improves With: nothing Worsens With: nothing Treatments Prior to Arrival: none - Related Data Previous Rx's Medication Instructions Recorded valACYclovir HCL [Valacyclovir] 1,000 mg PO Q8HR #21 tab 08/30/18 Allergies Allergy/AdvReac Type Severity Reaction Status Date / Time No Known Allergies Allergy Verified 08/30/18 00:24 Review of Systems ROS Statement: Those systems with pertinent positive or pertinent negative responses have been documented in the HPI. ROS Other: All systems not noted in ROS Statement are negative. Constitutional: Denies: fever, chills Respiratory: Reports: cough. Denies: dyspnea, wheezes, hemoptysis Cardiovascular: Reports: chest pain. Denies: palpitations, syncope Gastrointestinal: Denies: abdominal pain, nausea, vomiting, diarrhea Genitourinary: Denies: dysuria, hematuria Skin: Denies: rash Neurological: Denies: headache, weakness, numbness EKG Findings - EKG Comments: EKG Findings:: Possible old septal infarct. - EKG Results: EKG: interpreted by CHANTAL, sinus rhythm (Rate 91 bpm), normal axis, normal QRS, normal ST/T, no acute changes Past Medical History Past Medical History: Diabetes Mellitus, Hyperlipidemia, Hypertension History of Any Multi-Drug Resistant Organisms: None Reported Past Surgical History: Heart Catheterization With Stent Additional Past Surgical History / Comment(s): eye Past Psychological History: No Psychological Hx Reported Smoking Status: Current every day smoker Past Alcohol Use History: None Reported Past Drug Use History: None Reported General Exam Limitations: no limitations General appearance: alert, in no apparent distress Head exam: Present: atraumatic Eye exam: Present: normal appearance. Absent: scleral icterus, conjunctival injection ENT exam: Present: normal oropharynx Neck exam: Present: normal inspection Respiratory exam: Present: normal lung sounds bilaterally. Absent: respiratory distress, wheezes, rales, rhonchi, stridor Cardiovascular Exam: Present: regular rate, normal rhythm, normal heart sounds. Absent: systolic murmur, diastolic murmur, rubs, gallop GI/Abdominal exam: Present: soft. Absent: distended, tenderness, guarding, rebound, rigid, mass Extremities exam: Present: normal inspection, normal capillary refill. Absent: pedal edema, calf tenderness Back exam: Present: normal inspection. Absent: CVA tenderness (R), CVA tenderness (L), vertebral tenderness Neurological exam: Present: alert Skin exam: Present: warm, dry, intact, normal color, rash (Patient has clusters of raised red lesions in a bandlike pattern to the left side of the chest, suggestive of the onset of zoster.) Course Vital Signs 08/30/18 08/30/18 08/30/18 00:14 01:45 02:55 Temperature 98.4 F Pulse Rate 93 80 75 Respiratory 16 18 17 Rate Blood Pressure 151/111 134/87 136/86 O2 Sat by Pulse 93 L 96 94 L Oximetry 08/30/18 05:53 Temperature 98.1 F Pulse Rate 77 Respiratory 18 Rate Blood Pressure 119/76 O2 Sat by Pulse 95 Oximetry Chest Pain [facility] - MDM This patient is 57-year-old man presenting with left sided anterior chest pain. Physical exam does reveal out appears to be the early onset of herpes zoster. His medical workup is otherwise negative. He is started on valacyclovir and had some analgesia with good relief. Discussed further care as well as return parameters. Disposition Clinical Impression: Zoster, Hyperglycemia Disposition: HOME SELF-CARE Condition: Good Instructions (If sedation given, give patient instructions): Shingles (ED), Diabetic Hyperglycemia (ED) Prescriptions: valACYclovir HCL [Valacyclovir] 1,000 mg PO Q8HR #21 tab Is patient prescribed a controlled substance at d/c from ED?: No Referrals: None,Stated [Primary Care Provider] - 1-2 days Matty Fajardo MD [STAFF PHYSICIAN] - 1-2 days Leti Dennis MD [REFERRING] - 1-2 days
[2018-08-30 01:48] LABS: Glucose,Whole Blood 349 mg/dL (75-99)
--- NOTE | 2018-08-30 02:14 | XR ---
EXAMINATION TYPE: XR chest 1V portable DATE OF EXAM: 08/30/2018 COMPARISON: 03/06/2018 HISTORY: Chest pain TECHNIQUE: Single frontal view of the chest is obtained. FINDINGS: There is no heart failure nor confluent pneumonic infiltrate. Costophrenic angles are mary r. Heart size is normal. There are chest leads. IMPRESSION: Normal chest. No change.
[2018-08-30 02:20] LABS: Basophils % (A) 0 %; Eosinophils # (A) 0.1 k/uL (0-0.7); Eosinophils % (A) 1 %; HCT 43.6 % (39.0-53.0); HGB 14.3 gm/dL (13.0-17.5); Lymphocytes # (A) 1.9 k/uL (1.0-4.8); Lymphocytes % (A) 14 %; MCH 28.2 pg (25.0-35.0); MCHC 32.8 g/dL (31.0-37.0); MCV 85.8 fL (80.0-100.0); Mean Platelet Volume 6.3; Monocytes # (A) 0.5 k/uL (0-1.0); Monocytes % (A) 4 %; Neutrophils # (A) 10.7 k/uL (1.3-7.7); Neutrophils % (A) 79 %; Platelet Count 311 k/uL (150-450); RBC 5.08 m/uL (4.30-5.90); RDW 13.3 % (11.5-15.5); WBC 13.5 k/uL (3.8-10.6)
[2018-08-30 02:22] LABS: ALT 19 U/L (21-72); AST 12 U/L (17-59); Albumin 3.7 g/dL (3.5-5.0); Alkaline Phosphatase 113 U/L (38-126); Amylase 47 U/L (30-110); Anion Gap 7 mmol/L; Blood Urea Nitrogen 17 mg/dL (9-20); Calcium 9.3 mg/dL (8.4-10.2); Carbon Dioxide 23 mmol/L (22-30); Chloride 105 mmol/L (98-107); Glucose 354 mg/dL (74-99); Lipase 44 U/L (23-300); Magnesium 1.9 mg/dL (1.6-2.3); Potassium 4.8 mmol/L (3.5-5.1); Sodium 135 mmol/L (137-145); Total Bilirubin 0.3 mg/dL (0.2-1.3); Total Protein 6.9 g/dL (6.3-8.2)
[2018-08-30 02:24] LABS: INR 0.9 (<1.2); Partial Thromboplastin Time 25.5 sec (22.0-30.0); Prothrombin Time 9.5 sec (9.0-12.0)
[2018-08-30 02:41] LABS: Creatine Kinase 49 U/L (55-170)
[2018-08-30] MEDS ORDERED: HYDROcodone/APAP 7.5-325MG 1 EACH TAB PO ONE (02:48)
[2018-08-30] MEDS ORDERED: valACYclovir 500 MG TAB PO STA (02:48)
[2018-08-30 02:54] LABS: Creatine Kinase MB 0.5 ng/mL (0.0-2.4); Troponin I <0.012 ng/mL (0.000-0.034)
[2018-08-30 05:00] LABS: Glucose,Whole Blood 202 mg/dL (75-99)
[2018-08-30 05:55] VITALS: BP 119/76; PULSE 77; RESP 18; TEMP 98.1
== END 2018-08-30 06:01 | disposition home or self-care (01) ==
LOC: EC 00:03
DX: B02.9 Zoster without complications (principal); E11.65 Type 2 diabetes mellitus with hyperglycemia; F17.200 Nicotine dependence, unspecified, uncomplicated; Z95.5 Presence of coronary angioplasty implant and graft
CPT/HCPCS: 36415; 71045; 80053; 82150; 82550; 82553; 83690; 83735; 84484; 85025; 85610; 85730; 93005; 96360; 96361; 99285

== ENCOUNTER 2023-01-01 09:43 | Day surgery (SDC) | payer OTHER ==
[2022-12-31 12:43] VITALS: BMI 23.7
[~2023-01-01 09:43] MED LIST: ALPRAZolam 0.25 MG TAB PO PRN; ALPRAZolam 0.5 MG TAB PO PRN; ASPIRIN 325 MG TAB PO PRN; HEPARIN SODIUM,PORCINE 10,000 UNIT in SODIUM CHLORIDE 0.9% 1,000 ML IRRIGATION PRN; HEPARIN SODIUM,PORCINE 2,500 UNIT in SODIUM CHLORIDE 0.9% 250 ML IRRIGATION PRN; HYDROmorphone 0.5 MG/0.5 ML SYRINGE IVP PRN; LACTATED RINGERS 1,000 ML IV SCH; LIDOCAINE 1% (10MG/ML) FOR IV START INTRADERMA PRN; ONDANSETRON 4 MG/2 ML VIAL IVP ONE; SODIUM CHLORIDE 0.9% 1,000 ML in EMPTY BAG 1 BAG IV ONE; ZOLPIDEM 5 MG TAB PO PRN
[2023-01-01] MEDS ORDERED: SODIUM CHLORIDE 0.9% 1,000 ML IV ONE (09:56)
[2023-01-01 10:10] LABS: Glucose,Whole Blood 370 mg/dL (70-110)
[2023-01-01 10:12] VITALS: RESP 16; TEMP 98.2
[2023-01-01] MEDS ORDERED: INSULIN ASPART (NovoLOG) 100 UNIT/ML VIAL SQ ONE (10:15)
[2023-01-01 10:25] LABS: Basophils # (A) 0.1 k/uL (0-0.2); Basophils % (A) 0 %; Eosinophils # (A) 0.2 k/uL (0-0.7); Eosinophils % (A) 1 %; HCT 46.9 % (39.0-53.0); HGB 15.5 gm/dL (13.0-17.5); Lymphocytes # (A) 2.6 k/uL (1.0-4.8); Lymphocytes % (A) 14 %; MCH 28.9 pg (25.0-35.0); MCHC 32.9 g/dL (31.0-37.0); MCV 87.8 fL (80.0-100.0); Mean Platelet Volume 7.8; Monocytes # (A) 0.5 k/uL (0-1.0); Monocytes % (A) 3 %; Neutrophils # (A) 14.1 k/uL (1.3-7.7); Neutrophils % (A) 80 %; Platelet Count 341 k/uL (150-450); RBC 5.34 m/uL (4.30-5.90); RDW 13.2 % (11.5-15.5); WBC 17.7 k/uL (3.8-10.6)
[2023-01-01 10:43] LABS: Glucose,Whole Blood 322 mg/dL (70-110)
[2023-01-01] MEDS ORDERED: MIDAZOLAM 2 MG/2 ML VIAL ONE (10:44)
[2023-01-01] MEDS ORDERED: PROPOFOL 10 MG/ML 20 ML VIAL IV ONE (10:44)
[2023-01-01] MEDS ORDERED: KETAMINE 10 MG/ML 20 ML VIAL ONE (10:44)
[2023-01-01] MEDS ORDERED: fentaNYL (PF) 50 MCG/ML 2 ML AMP ONE (10:44)
[2023-01-01 10:48] LABS: African American GFR (CKD) >90 (>60 ml/min/1.73 sqM); Anion Gap 8 mmol/L; Blood Urea Nitrogen 12 mg/dL (9-20); Carbon Dioxide 26 mmol/L (22-30); Chloride 99 mmol/L (98-107); Glucose 334 mg/dL (74-99); Non-African American GFR(CKD) >90 (>60 ml/min/1.73 sqM); Potassium 4.7 mmol/L (3.5-5.1); Sodium 133 mmol/L (137-145)
[2023-01-01] MEDS ORDERED: LIDOCAINE 1% INJ 10MG/ML (30 ML VIAL-PF) SQ ONE (11:07)
[2023-01-01] MEDS ORDERED: IOPAMIDOL-250 100ML BTL INTRAARTER ONE (12:22)
--- NOTE | 2023-01-01 12:46 | IR ---
EXAMINATION TYPE: IR angio extremity RT DATE OF EXAM: 01/01/2023 COMPARISON: NONE HISTORY: Fluoroscopy time. Fluoroscopy was provided to the referring clinician.
[2023-01-01 15:16] VITALS: BP 121/74; PULSE 80
--- NOTE | 2023-01-09 08:32 | P.OP ---
Date of Procedure: 01/01/23 Preoperative Diagnosis: Right femoral occlusion Postoperative Diagnosis: Same. Procedure(s) Performed: 1: Ultrasound-guided cannulation femoral artery. 2: Catheter placement abdominal aorta. 3: Selective catheterization right common femoral artery (contralateral side). 4: Right femoral angiogram. 5: Inability to complete proposed procedure of right femoral atherectomy. Implants: None. Anesthesia: MAC Surgeon: Aayush Castorena Estimated Blood Loss (ml): 20 Pathology: none sent Condition: stable Disposition: no change Indications for Procedure: Patient is a 62-year-old male who presented with a several limiting right calf claudication. Physical examination a strata femoral pulse to be intact on the right warm popliteal, DP and PT pulses were found to be absent. Arterial Doppler study was performed which demonstrated significant decrease in ankle brachial index as well as findings consistent with femoral occlusion. Discussion was held with the patient in reference to options of attempted atherectomy versus bypass eared both procedures as well as inherent risk and benefits of both procedures were reviewed. Was felt the patient was a reasonable candidate for atherectomy and the patient decided to proceed with atherectomy attempt. Operative Findings: Inability to cross obstructive lesion right superficial femoral artery. Description of Procedure: Patient is brought to special procedure suite. Both groins were sterilely prepped and draped in usual manner. Patient received attended anesthesia delivered by the department of anesthesiology. Utilizing ultrasound the left common femoral artery was identified and 1% Xylocaine was utilized for local anesthesia tissues overlying the left common femoral artery. Utilizing ultrasound and through the anesthetized area a multipurpose needle was utilized cannulate the artery. Once cannulated Softip guidewire is advanced. The needle was withdrawn and a 6-Prydeinig sheath was placed. Guidewire and catheter combination were utilized to to selectively cannulate the origin of the right common iliac artery. Catheter was exchanged for a angled glide catheter and catheter and guidewire combination were advanced to the common femoral level. Guidewire was advanced into the superficial femoral artery proximally as was the catheter. Femoral angiogram was performed. Multiple guidewire and catheter combinations were utilized to attempt to advance guidewire through the occlusion however this could not be achieved and was felt no further attempts would be fruitful and the procedure was terminated. Catheter and guidewire were withdrawn and the sheath was withdrawn with the puncture wound being closed with Angio-Seal device. Patient tolerated the procedure well and was taken to the outpatient recovery area satisfactory and stable condition.
== END 2023-01-01 16:40 | disposition home or self-care (01) ==
LOC: CATHCVL 09:43
PROVIDERS: ATTEND Surgery
DX: I70.201 Unspecified atherosclerosis of native arteries of extremities, right leg (principal); I25.2 Old myocardial infarction; I25.10 Atherosclerotic heart disease of native coronary artery without angina pectoris; I10 Essential (primary) hypertension; E78.5 Hyperlipidemia, unspecified; F10.20 Alcohol dependence, uncomplicated; F32.A Depression, unspecified; F17.210 Nicotine dependence, cigarettes, uncomplicated; E11.52 Type 2 diabetes mellitus with diabetic peripheral angiopathy with gangrene; Z79.02 Long term (current) use of antithrombotics/antiplatelets; Z79.82 Long term (current) use of aspirin; Z79.84 Long term (current) use of oral hypoglycemic drugs; Z79.899 Other long term (current) drug therapy
CPT/HCPCS: 36247; 76937; 75710; 80048; 85025; C1894 ×3; C1769 ×4; C1887; C1760; J2250; J2001; J3010; J2704; Q9966

== ENCOUNTER 2023-03-14 05:56 | Day surgery (SDC) | payer OTHER ==
[2023-03-10 10:26] VITALS: BMI 21.2
[~2023-03-14 05:56] MED LIST changes: -ASPIRIN 325 MG TAB PO PRN; +ASPIRIN 325 MG TAB PO STA; +ATORVASTATIN 80 MG TAB PO STA; +HEPARIN SODIUM,PORCINE (1 ML) 2,500 UNIT in SODIUM CHLORIDE 0.9% 250 ML IRRIGATION PRN; -HEPARIN SODIUM,PORCINE 2,500 UNIT in SODIUM CHLORIDE 0.9% 250 ML IRRIGATION PRN; -HYDROmorphone 0.5 MG/0.5 ML SYRINGE IVP PRN; -LACTATED RINGERS 1,000 ML IV SCH; -LIDOCAINE 1% (10MG/ML) FOR IV START INTRADERMA PRN; +NITROGLYCERIN SL TABS 0.4 MG TAB SUBLINGUAL PRN; -ONDANSETRON 4 MG/2 ML VIAL IVP ONE; -SODIUM CHLORIDE 0.9% 1,000 ML in EMPTY BAG 1 BAG IV ONE; +SODIUM CHLORIDE 0.9% 1,000 ML in EMPTY BAG 1 BAG IV SCH; -ZOLPIDEM 5 MG TAB PO PRN
[2023-03-14] MEDS ORDERED: INSULIN ASPART (NovoLOG) 100 UNIT/ML VIAL SQ ONE (06:37)
[2023-03-14 06:45] LABS: Glucose,Whole Blood 391 mg/dL (70-110)
[2023-03-14 07:11] VITALS: TEMP 98.2
[2023-03-14 07:29] LABS: Basophils % (A) 0 %; Eosinophils # (A) 0.2 k/uL (0-0.7); Eosinophils % (A) 2 %; HCT 45.1 % (39.0-53.0); HGB 15.4 gm/dL (13.0-17.5); Lymphocytes # (A) 2.5 k/uL (1.0-4.8); Lymphocytes % (A) 22 %; MCH 30.2 pg (25.0-35.0); MCV 88.6 fL (80.0-100.0); Mean Platelet Volume 7.6; Monocytes # (A) 0.6 k/uL (0-1.0); Monocytes % (A) 6 %; Neutrophils # (A) 7.9 k/uL (1.3-7.7); Neutrophils % (A) 69 %; Platelet Count 301 k/uL (150-450); RBC 5.09 m/uL (4.30-5.90); RDW 13.2 % (11.5-15.5); WBC 11.5 k/uL (3.8-10.6)
[2023-03-14 07:34] LABS: African American GFR (CKD) >90 (>60 ml/min/1.73 sqM); Anion Gap 8 mmol/L; Blood Urea Nitrogen 16 mg/dL (9-20); Calcium 9.1 mg/dL (8.4-10.2); Carbon Dioxide 27 mmol/L (22-30); Chloride 95 mmol/L (98-107); Glucose 394 mg/dL (74-99); Non-African American GFR(CKD) >90 (>60 ml/min/1.73 sqM); Potassium 4.7 mmol/L (3.5-5.1); Sodium 130 mmol/L (137-145)
[2023-03-14] MEDS ORDERED: LIDOCAINE 1% INJ 10MG/ML (5 ML VIAL-PF) SQ ONE (07:42)
[2023-03-14] MEDS ORDERED: MIDAZOLAM 2 MG/2 ML VIAL IVP ONE (07:44)
[2023-03-14] MEDS ORDERED: VERAPAMIL SYRINGE (5 MG/10 ML) INTRAARTER ONE (07:44)
[2023-03-14] MEDS ORDERED: fentaNYL (PF) 50 MCG/ML 2 ML AMP IVP ONE (07:44)
[2023-03-14] MEDS ORDERED: HEPARIN SODIUM 1,000 UN/ML (10ML VL) IV ONE (07:45)
[2023-03-14] MEDS ORDERED: IOPAMIDOL-370 100ML BTL INJ ONE (08:04)
[2023-03-14] MEDS ORDERED: RX INFO: IV CONTRAST WAS GIVEN 1 EACH MISC MISCELLANE PRN (08:15)
[2023-03-14] MEDS ORDERED: SODIUM CHLORIDE 0.9% 1,000 ML IV SCH (08:15)
[2023-03-14] MEDS ORDERED: SODIUM CHLORIDE 0.9% 1,000 ML IV ONE (08:19)
[2023-03-14] MEDS ORDERED: METOPROLOL SUCCINATE (ER) 25 MG TAB.ER.24H PO STA (08:51)
[2023-03-14] MEDS ORDERED: ISOSORBIDE MONONITRATE ER 30 MG TAB.ER.24H PO STA (08:51)
[2023-03-14 12:54] VITALS: RESP 16
[2023-03-14 12:57] VITALS: BP 98/60; PULSE 70
--- NOTE | 2023-03-24 01:32 | CC ---
CARDIAC CATHETERIZATION REPORT INDICATION: Ischemic cardiomyopathy. PROCEDURE NOTE: After obtaining informed consent, left heart catheterization and coronary angiogram were performed via the right radial artery using standard Harish catheters. The patient tolerated the procedure well without any obvious immediate complications. Total sedation time was 20 minutes. Right radial artery access was obtained using Seldinger technique. A 6-[place]an sheath was placed. Catheters and wires were floated into the ascending aorta under fluoroscopic guidance. At the end of the procedure, a TR band was used for hemostasis. The patient received verapamil and heparin per protocol. FINDINGS: HEMODYNAMICS: 1. Left ventricular end-diastolic pressure is 18 mm. There is no significant gradient across the aortic valve. 2. Left ventriculogram: Left ventriculogram is not performed. ANGIOGRAPHIC DATA: 1. Right coronary artery: Right coronary artery shows a 95% stenosis as it bifurcates into PDA and PLV. It is heavily calcified and appears diffusely diseased both in the proximal and midportion. 2. Left main coronary artery is a normal-sized vessel and is free of stenosis. It divides into left anterior descending coronary artery and circumflex coronary artery. 3. Circumflex coronary artery has mild nonobstructive disease. 4. Left anterior descending coronary artery that was previously stented appears totally occluded proximally. There are [id number] collaterals to the distal RCA. CONCLUSIONS: 1. 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 2. 95% stenosis involving the right coronary artery that appears diffusely diseased and heavily calcified. PLAN: I reviewed angiographic data with Dr. Lauro Armijo, who performed his angioplasty initially. He felt that coronary intervention on the right coronary artery is going to be high-risk especially given the fact that patient has severe peripheral arterial disease and circulatory support during angioplasty might be difficult. I am going to review treatment options with the patient. I really do not see the need for CT Surgery consultation as there is really nothing to bypass including the LAD, circ being free of significant disease and we may be able to deal with right coronary artery percutaneously. I will probably refer him to [facility] if the patient is willing and able to go. If not, I will ask one of the other shelter advocate in town. The patient will need an AICD down the road if we document that his LV function does not improve in spite of revascularizing the right coronary artery territory. I spoke to Dr. Villafana, the Vascular Surgeon and asked him to hold off on surgery till I revascularize at the right leg. Once we addressed his cardiac issues, I am going to send him back to Dr. Villafana for surgical intervention of the right leg where he has significant intermittent claudication but does not have critical limb ischemia. MMODL / IJN: [id number] /
== END 2023-03-14 12:16 | disposition home or self-care (01) ==
LOC: CATHCVL 05:56
PROVIDERS: ATTEND Internal Medicine Cardiovascular Disease
DX: I25.10 Atherosclerotic heart disease of native coronary artery without angina pectoris (principal); I10 Essential (primary) hypertension; E11.9 Type 2 diabetes mellitus without complications; E78.2 Mixed hyperlipidemia; F17.210 Nicotine dependence, cigarettes, uncomplicated; Z95.1 Presence of aortocoronary bypass graft; Z82.49 Family history of ischemic heart disease and other diseases of the circulatory system; Z79.02 Long term (current) use of antithrombotics/antiplatelets; Z79.84 Long term (current) use of oral hypoglycemic drugs; Z79.899 Other long term (current) drug therapy
CPT/HCPCS: 93458; 80048; 85025; C1769; C1894; J2250; J2001; J3010; J1644; Q9967